=== PATIENT | male | born 1990 | race Hispanic/Latino ===

== ENCOUNTER 2018-11-29 15:53 | Emergency (ER) | payer OTHER ==
[2018-11-29] MEDS ORDERED: CLINDAMYCIN IVPB STA (16:30)
[2018-11-29] MEDS ORDERED: SODIUM CHLORIDE 0.9% IVPB STA (16:30)
--- NOTE | 2018-11-29 16:55 | ED PDOC ---
HPI: General Adult Time Seen by Provider: 11/29/18 16:22 Chief Complaint (Nursing): Rib Injury Chief Complaint (Provider): Rib Injury, Fever, Cough History Per: Patient History/Exam Limitations: no limitations Onset/Duration Of Symptoms: Days (x2) Current Symptoms Are (Timing): Still Present Additional Complaint(s): 28 year old male presents to the ED for evaluation of a right rib injury s/p a skiing accident two days ago. Patient is additionally reporting for the past two days a fever, 101.3 upon arrival, cough, chest congestion, sore throat, ear pain, and one epistaxis episode yesterday. Reports taking Tylenol Cold & Congestion with transient relief. Otherwise, denies dysuria and other complaints. PMD: none provided Past Medical History Reviewed: Historical Data, Nursing Documentation, Vital Signs Vital Signs: Last Vital Signs Temp 101.3 F H 11/29/18 16:12 Pulse 100 H 11/29/18 16:12 Resp 18 11/29/18 16:12 BP 138/88 11/29/18 16:12 Pulse Ox 97 11/29/18 16:12 - Medical History Other PMH: tourettes - Surgical History Surgical History: Appendectomy - Family History Family History: States: Unknown Family Hx - Social History Current smoker - smoking cessation education provided: No Alcohol: Social Drugs: Denies - Home Medications Home Medications: Ambulatory Orders Medication Instructions Recorded Diclofenac Sodium 50 mg PO BID #20 tablet. 11/29/18 Oseltamivir Phosphate [Tamiflu] 75 mg PO BID #10 capsule 11/29/18 Zolpidem Tartrate [Ambien] 10 mg PO HS #5 tablet 11/29/18 - Allergies Allergies/Adverse Reactions: Allergies Allergy/AdvReac Type Severity Reaction Status Date / Time No Known Allergies Allergy Verified 04/08/15 12:45 Review of Systems ROS Statement: Except As Marked, All Systems Reviewed And Found Negative Constitutional: Positive for: Fever ENT: Positive for: Ear Pain, Throat Pain, Other (one episode epistaxis) Respiratory: Positive for: Cough, Other (chest congestion) Genitourinary Male: Negative for: Dysuria Musculoskeletal: Positive for: Other (right rib pain) Physical Exam - Reviewed Nursing Documentation Reviewed: Yes Vital Signs Reviewed: Yes - Physical Exam Appears: Positive for: No Acute Distress Head Exam: Positive for: ATRAUMATIC, NORMOCEPHALIC Skin: Positive for: Normal Color, Warm ENT: Positive for: TM Is/Are (bilaterally: unremarkable - all landmarks visualized, TMs visualized, + reflection of light), Pharyngeal Erythema, Other (uvula mildly edematous). Negative for: Tonsillar Exudate, Tonsillar Swelling (0+, not visualized) Neck: Positive for: Normal, Painless ROM, Supple Cardiovascular/Chest: Positive for: Regular Rate, Rhythm. Negative for: Chest Non Tender (right sided tenderness with anterior, posterior,, and lateral pressure) Respiratory: Positive for: Normal Breath Sounds. Negative for: Respiratory Distress Gastrointestinal/Abdominal: Positive for: Normal Exam, Soft. Negative for: Ten derness Back: Positive for: Normal Inspection Lymphatic: Positive for: Other (cervical nodes +1 swelling bilaterally) Neurologic/Psych: Positive for: Alert, Oriented (x3). Negative for: Motor/Sensory Deficits - Laboratory Results Result Diagrams: 11/29/18 17:19 - ECG O2 Sat by Pulse Oximetry: 97 (RA) Pulse Ox Interpretation: Normal Medical Decision Making Medical Decision Making: Time: 1634 Initial Impression: right rib pain, r/o fracture; fever, cough, r/o pneumothorax, r/o infection Initial Plan: --Influenza A B swab --Rapid strep swab --CMP --CBC with differential --CXR with ribs 1755 Blood work presenting no clinically significant results; CXR read by RICKY as NAD, no infiltrates, no pneumothroax, and no fx's noted. Patient informed that if the official read revels any new information, he will be contacted. 1800 Flu A (+). Scribe Attestation: Documented by Maribel Villasenor, acting as a scribe for Barrera Kurtz PA-C. Provider Scribe Attestation: All medical record entries made by the Scribe were at my direction and personally dictated by me. I have reviewed the chart and agree that the record accurately reflects my personal performance of the history, physical exam, medical decision making, and the department course for this patient. I have also personally directed, reviewed, and agree with the discharge instructions and disposition. Disposition - Clinical Impression Clinical Impression: Influenza A (H1N1), Rib contusion - Patient ED Disposition Is Patient to be Admitted: No Doctor Will See Patient In The: Office Counseled Patient/Family Regarding: Studies Performed, Diagnosis, Need For Followup, Rx Given - Disposition Referrals: [facility] [Outside] Disposition: Routine/Home Disposition Time: 18:04 Condition: STABLE Prescriptions: Diclofenac Sodium 50 mg PO BID #20 tablet. Oseltamivir Phosphate [Tamiflu] 75 mg PO BID #10 capsule Zolpidem Tartrate [Ambien] 10 mg PO HS #5 tablet Instructions: Flu, Flu, Adult (DC), Bruised Rib (DC) Forms: [employer] (Azeri)
[2018-11-29 17:39] LABS: BASO % 0.2 % (0.0-2.0); EOS % 0.1 % (0.0-4.0); HEMOGLOBIN 14.9 g/dL (12.0-18.0); LYMPH # 0.6 K/uL (1.0-4.3); LYMPH % 12.8 % (20.0-40.0); MEAN CELL VOLUME 93.8 fl (80.0-94.0); MEAN CORPUSCULAR HEMOGLOBIN 31.5 pg (27.0-31.0); MEAN CORPUSCULAR HGB CONC 33.6 g/dL (33.0-37.0); MEAN PLATELET VOLUME 8.2 fl (7.2-11.7); MONO # 0.7 K/uL (0.0-0.8); MONO % 14.4 % (0.0-10.0); NEUT # 3.4 K/uL (1.8-7.0); NEUT % 72.5 % (50.0-75.0); NRBC % 0.4 % (0.0-0.0); RBC 4.71 Mil/uL (4.40-5.90); RED CELL DISTRIBUTION WIDTH 12.6 % (11.5-14.5); WHITE BLOOD COUNT 4.7 K/uL (4.8-10.8)
[2018-11-29 22:40] VITALS: BP 124/78; PULSE 92; RESP 16; TEMP 100; O2SAT 98
--- NOTE | 2018-11-30 09:55 | RAD ---
Date of service: 11/29/2018 PROCEDURE: Radiographs of the Chest and Right Ribs. HISTORY: R/O pna AND RIB FX (RIGHT SIDE) COMPARISON: None available. TECHNIQUE: Frontal radiograph of the chest and multiple oblique radiographs of the right ribs were obtained. FINDINGS: RIGHT RIBS: No fracture or focal lesion visualized. LUNGS: Clear. PLEURA: No pneumothorax or pleural fluid. CARDIOVASCULAR: Normal cardiac size. No pulmonary vascular congestion. No aortic atherosclerotic calcification present OTHER FINDINGS: None. IMPRESSION: Unremarkable radiographs of the chest and right ribs. No right rib fracture.
== END 2018-11-29 18:41 | disposition home or self-care (01) ==
LOC: H.ER 15:53
DX: S20.219A Contusion of unspecified front wall of thorax, initial encounter (principal); Y93.23 Activity, snow (alpine) (downhill) skiing, snowboarding, sledding, tobogganing and snow tubing; Y92.89 Other specified places as the place of occurrence of the external cause; J09.X2 Influenza due to identified novel influenza A virus with other respiratory manifestations